=== PATIENT | female | born 1980 | race Caucasian/White ===

== ENCOUNTER 2023-12-02 09:27 | Outpatient (CLI) | payer OTHER | END 2023-12-02 09:32 | disposition home or self-care (01) | LOC: SONOGRAMA 09:27 | PROVIDERS: ATTEND Pathology Anatomic Pathology & Clinical Pathology | DX: D34 Benign neoplasm of thyroid gland (principal); E06.3 Autoimmune thyroiditis; E04.1 Nontoxic single thyroid nodule ==